=== PATIENT | female | born 1975 | race Caucasian/White ===

== ENCOUNTER 2018-08-27 09:04 | Emergency (ER) | payer BC ==
[~2018-08-27] VITALS: Ht 175.3 cm; Wt 59.0 kg
[2018-08-27 09:08] VITALS: Ht 175.3 cm; Wt 59.0 kg
[2018-08-27 14:48] VITALS: BP 105/67
== END 2018-08-27 14:48 | disposition home or self-care (01) ==
LOC: ED 09:04
DX: M54.31 Sciatica, right side (principal); Z98.890 Other specified postprocedural states
CPT/HCPCS: J1100; J2270; J2405